=== PATIENT | male | born 1980 | race Caucasian/White ===

== ENCOUNTER 2017-05-14 00:23 | Emergency (ER) | payer MEDICAID ==
[~2017-05-14] VITALS: Ht 185.4 cm; Wt 82.1 kg
[2017-05-14 00:27] VITALS: BP 131/86
[2017-05-14] MEDS ORDERED: LIDOCAINE 1%, 10ML ONE (00:53)
[2017-05-14] MEDS ORDERED: LIDOCAINE 1%, 20ML SQ ONE (01:00)
[2017-05-14] MEDS ORDERED: BUPIVACAINE 0.25% INFIL ONE (02:00)
[2017-05-14] MEDS ORDERED: BUPIVACAINE 0.25% ONE (02:28)
[2017-05-14] MEDS ORDERED: CEPHALEXIN 500 MG CAPSULE PO ONE (03:30)
[2017-05-14] MEDS ORDERED: CEPHALEXIN 500 MG CAPSULE ONE (03:38)
[2017-05-14] MEDS ORDERED: BACITRACIN ZINC OINT 500U/GM, 0.9 GM ONE (03:43)
== END 2017-05-14 04:05 | disposition home or self-care (01) ==
LOC: ED 03:50
DX: L03.011 Cellulitis of right finger (principal); L02.511 Cutaneous abscess of right hand
CPT/HCPCS: 26011; 73140; 99284; J3490

== ENCOUNTER 2017-05-21 15:12 | Emergency (ER) | payer MEDICAID ==
[~2017-05-21] VITALS: Ht 152.4 cm; Wt 84.8 kg
[2017-05-21 15:26] VITALS: BP 135/86
[2017-05-21] MEDS ORDERED: BACITRACIN ZINC OINT 500U/GM, 0.9 GM ONE (16:32)
== END 2017-05-21 17:04 | disposition home or self-care (01) ==
LOC: ED 15:33
DX: Z48.01 Encounter for change or removal of surgical wound dressing (principal); F17.200 Nicotine dependence, unspecified, uncomplicated
CPT/HCPCS: 99283